=== PATIENT | female | born 1935 | race Caucasian/White ===

== ENCOUNTER 2022-01-30 19:35 | Inpatient (IN) | payer MEDICARE ==
[2022-01-30 20:09] LABS: #Monocytes 0.8 10x3/uL (0.0-1.1); #Neutrophils 4.8 10x3/uL (1.5-8.4); %Basophils 0.5 % (0.0-2.0); %Eosinophils 0.4 % (0.0-6.0); %Lymphocytes 32.3 % (18.0-47.0); %Monocytes 9.7 % (0.0-10.0); %Neutrophils 56.7 % (40.0-75.0); Hemoglobin 13.8 g/dL (12.0-15.5); Mean Corpuscular HGB CONC 33.9 g/dL (32.0-36.0); Mean Corpuscular Hemoglobin 29.4 pg (27.0-33.0); Mean Corpuscular Volume 86.6 fl (81.6-98.3); Mean Platelet Volume 10.6 fl (7.4-10.4); Platelet Count 275 10x3/uL (150-450); RBC Distribution Width 14.7 % (11.5-14.5); White Blood Cell (WBC) Count 8.5 10x3/uL (3.5-10.5)
[2022-01-30 20:23] LABS: ALT (SGPT) 11 U/L (8-55); AST (SGOT) 24 U/L (5-34); Albumin 4.2 g/dL (3.4-4.8); Alkaline Phosphatase 69 U/L (40-110); Anion Gap 17 mmol/L (10-20); BUN (Urea Nitrogen) 16 mg/dL (9.8-20.1); Bilirubin, Total 0.8 mg/dL (0.2-1.2); Calc. Creatinine Clearance 0 mL/min (70-130); Calcium 9.6 mg/dL (7.8-10.44); Carbon Dioxide 21 mmol/L (23-31); Chloride 107 mmol/L (98-107); Globulin 3.5 g/dL (2.4-3.5); Glucose 91 mg/dL (83-110); Lipase 40 U/L (8-78); Potassium 3.5 mmol/L (3.5-5.1); Protein, Total 7.7 g/dL (5.8-8.1); Sodium 141 mmol/L (136-145)
[2022-01-30] MEDS ORDERED: Aspirin Chewable 81 MG TAB ONE (20:28)
[2022-01-30] MEDS ORDERED: Ondansetron PF 4 MG/2 ML Vial ONE (20:28)
[2022-01-30 20:50] LABS: Bilirubin Neg (Negative); Blood, Urine 150 (Negative); Clarity Clear (Clear); Glucose, Urine (Dipstick) Normal (Negative); Ketone, Urine 50 mg/dL (Negative); Leukocyte 500 (Negative); Nitrite Positive (Negative); Protein, Urine (Dipstick) 15 mg/dl (Neg-Trace); Specific Gravity, Urine 1.015 (1.002-1.036); Urobilinogen Normal mg/dL (Less than 2)
[2022-01-30 20:56] LABS: Bacteria/HPF 3+ HPF (None Seen); Squamous Epithelial 0-3 HPF (0-3)
[2022-01-30] MEDS ORDERED: Cefepime 2 GM VIAL ONE (21:43)
[2022-01-30 23:18] LABS: Troponin I Less than 0.010 ng/mL (< 0.028)
[2022-01-30] MEDS ORDERED: Senokot S 8.6-50 MG TAB PO PRN (23:41)
[2022-01-31 02:05] LABS: SARS-CoV-2 NAA Rapid Test Not Detected (NotDetected)
[2022-01-31 02:12] LABS: Troponin I Less than 0.010 ng/mL (< 0.028)
[2022-01-31] MEDS ORDERED: Ondansetron PF 4 MG/2 ML Vial ONE ×2 (03:52→10:29)
[2022-01-31 08:41] LABS: Anion Gap 17 mmol/L (10-20); BUN (Urea Nitrogen) 12 mg/dL (9.8-20.1); Calc. Creatinine Clearance 0 mL/min (70-130); Calcium 8.5 mg/dL (7.8-10.44); Carbon Dioxide 17 mmol/L (23-31); Chloride 112 mmol/L (98-107); Glucose 86 mg/dL (83-110); Potassium 4.5 mmol/L (3.5-5.1); Sodium 141 mmol/L (136-145)
[2022-01-31] MEDS ORDERED: Enoxaparin Sodium 40 MG/0.4 ML SYRINGE ONE (09:16)
[2022-01-31] MEDS ORDERED: cefTRIAXone\\ROCEPHIN 1 GM VIAL ONE (09:16)
[2022-01-31] MEDS: Enoxaparin Sodium 40 MG/0.4 ML SYRINGE SC SCH (09:26)
[2022-01-31] MEDS: cefTRIAXone\\ROCEPHIN 1 GM in Sodium Chloride 0.9% 100 ML IVPB SCH (09:26)
[2022-01-31] MEDS: 1/2 NS w/KCL 20 mEq 1,000 ML IV SCH ×3 (10:30→21:44)
[2022-01-31] MEDS: Ondansetron PF 4 MG/2 ML Vial IVP PRN ×2 (10:30→18:33)
[2022-01-31] MEDS ORDERED: Acetaminophen 325 MG TAB PO PRN (14:36)
[2022-01-31 16:35] VITALS: BMI 25.0
[2022-01-31] MEDS ORDERED: Melatonin 3 MG TAB PO SCH (23:15)
[2022-02-01 04:50] LABS: Anion Gap 15 mmol/L (10-20); BUN (Urea Nitrogen) 7 mg/dL (9.8-20.1); Calc. Creatinine Clearance 68 mL/min (70-130); Calcium 8.8 mg/dL (7.8-10.44); Carbon Dioxide 20 mmol/L (23-31); Chloride 111 mmol/L (98-107); Glucose 100 mg/dL (83-110); Potassium 3.9 mmol/L (3.5-5.1); Sodium 142 mmol/L (136-145)
[2022-02-01 04:51] LABS: #Basophils 0.1 10x3/uL (0.0-0.2); #Eosinphils 0.1 10x3/uL (0.0-0.5); #Monocytes 0.9 10x3/uL (0.0-1.1); #Neutrophils 5.1 10x3/uL (1.5-8.4); %Basophils 0.6 % (0.0-2.0); %Eosinophils 0.7 % (0.0-6.0); %Lymphocytes 29.5 % (18.0-47.0); %Monocytes 10.1 % (0.0-10.0); %Neutrophils 58.9 % (40.0-75.0); Hemoglobin 12.6 g/dL (12.0-15.5); Mean Corpuscular HGB CONC 33.1 g/dL (32.0-36.0); Mean Corpuscular Hemoglobin 29.2 pg (27.0-33.0); Mean Corpuscular Volume 88.2 fl (81.6-98.3); Mean Platelet Volume 10.4 fl (7.4-10.4); Platelet Count 220 10x3/uL (150-450); RBC Distribution Width 14.6 % (11.5-14.5); Red Blood Cell (RBC) Count 4.32 10x6/uL (3.90-5.03); White Blood Cell (WBC) Count 8.7 10x3/uL (3.5-10.5)
[2022-02-01] MEDS: Enoxaparin Sodium 40 MG/0.4 ML SYRINGE SC SCH (09:11)
[2022-02-01] MEDS: cefTRIAXone\\ROCEPHIN 1 GM in Sodium Chloride 0.9% 100 ML IVPB SCH (09:11)
[2022-02-01 13:04] VITALS: BP 144/75; TEMP 98.3
[2022-02-01] MEDS: 1/2 NS w/KCL 20 mEq 1,000 ML IV SCH (13:33)
[2022-02-01] MEDS ORDERED: Melatonin 3 MG TAB PO SCH (21:00)
== END 2022-02-01 14:04 | disposition home or self-care (01) | DRG 689 ==
LOC: CSHERS 19:35 → CSHERHOLD 01-31 00:54 → CSHTELE 01-31 13:00
PROVIDERS: ADMIT Family Medicine; ATTEND Internal Medicine
DX: N39.0 Urinary tract infection, site not specified (principal); G93.41 Metabolic encephalopathy; G89.29 Other chronic pain; I10 Essential (primary) hypertension; M19.90 Unspecified osteoarthritis, unspecified site; Z96.649 Presence of unspecified artificial hip joint; M81.0 Age-related osteoporosis without current pathological fracture; Z96.642 Presence of left artificial hip joint; F41.9 Anxiety disorder, unspecified; F32.A Depression, unspecified; B96.20 Unspecified Escherichia coli [E. coli] as the cause of diseases classified elsewhere; Z20.822 Contact with and (suspected) exposure to COVID-19; Z88.5 Allergy status to narcotic agent; Z88.0 Allergy status to penicillin; Z88.8 Allergy status to other drugs, medicaments and biological substances; Z79.899 Other long term (current) drug therapy; Z86.711 Personal history of pulmonary embolism; Z79.51 Long term (current) use of inhaled steroids; Z90.710 Acquired absence of both cervix and uterus; Z98.890 Other specified postprocedural states; Z87.891 Personal history of nicotine dependence
CPT/HCPCS: 36415; 70450; 71045; 80048; 80053; 81003; 81015; 83605; 83690; 84484; 85025; 87040; 87077; 87086; 87186; 93005; 93010; J0692; J0696; J1650; J2405; J3480; J3490; U0002

== ENCOUNTER 2022-04-10 11:39 | Emergency (ER) | payer MEDICARE ==
[2022-04-10] MEDS ORDERED: Ondansetron PF 4 MG/2 ML Vial ONE (12:08)
[2022-04-10] MEDS ORDERED: Morphine 4 MG/ML VIAL ONE ×2 (12:09→13:56)
[2022-04-10 12:10] LABS: #Monocytes 0.8 10x3/uL (0.0-1.1); #Neutrophils 10.1 10x3/uL (1.5-8.4); %Basophils 0.3 % (0.0-2.0); %Eosinophils 0.3 % (0.0-6.0); %Lymphocytes 13.9 % (18.0-47.0); %Monocytes 6.2 % (0.0-10.0); %Neutrophils 78.3 % (40.0-75.0); Hemoglobin 13.6 g/dL (12.0-15.5); Mean Corpuscular HGB CONC 32.7 g/dL (32.0-36.0); Mean Corpuscular Hemoglobin 29.5 pg (27.0-33.0); Mean Corpuscular Volume 90.2 fl (81.6-98.3); Mean Platelet Volume 10.3 fl (7.4-10.4); Platelet Count 244 10x3/uL (150-450); RBC Distribution Width 14.8 % (11.5-14.5); Red Blood Cell (RBC) Count 4.61 10x6/uL (3.90-5.03); White Blood Cell (WBC) Count 12.9 10x3/uL (3.5-10.5)
[2022-04-10 12:24] LABS: ALT (SGPT) 19 U/L (8-55); AST (SGOT) 30 U/L (5-34); Albumin 4.1 g/dL (3.4-4.8); Alkaline Phosphatase 71 U/L (40-110); Anion Gap 12 mmol/L (10-20); BUN (Urea Nitrogen) 22 mg/dL (9.8-20.1); Bilirubin, Total 0.6 mg/dL (0.2-1.2); Calc. Creatinine Clearance 0 mL/min (70-130); Calcium 9.4 mg/dL (7.8-10.44); Carbon Dioxide 25 mmol/L (23-31); Chloride 108 mmol/L (98-107); Estimated GFR 81; Globulin 3.2 g/dL (2.4-3.5); Glucose 93 mg/dL (83-110); Potassium 4.2 mmol/L (3.5-5.1); Protein, Total 7.3 g/dL (5.8-8.1); Sodium 141 mmol/L (136-145)
[2022-04-10] MEDS ORDERED: Iopamidol 300 61% 100 ML VIAL FS ONE (13:16)
[2022-04-10 14:25] LABS: PTT 26.5 sec (22.0-33.0); Prothrombin Time 11.1 sec (9.5-12.1)
[2022-04-10] MEDS ORDERED: Ketorolac Tromethamine 30 MG/ML VIAL ONE (15:19)
== END 2022-04-10 15:30 | disposition short-term general hospital (02) ==
LOC: CSHERS 11:39
DX: S72.011A Unspecified intracapsular fracture of right femur, initial encounter for closed fracture (principal); I10 Essential (primary) hypertension; W19.XXXA Unspecified fall, initial encounter
CPT/HCPCS: 70450; 71260; 72170; 74177; 80053; 83880; 85025; 85610; 85730; 93005; 96374; 96375; 96376; J1885; J2270; J2405; Q9967

== ENCOUNTER 2022-07-05 17:44 | Inpatient (IN) | payer MEDICARE ==
[~2022-07-05 17:44] MED LIST: Iopamidol 370 76% 100 ML VIAL ONE
[2022-07-05 19:04] LABS: #Monocytes 0.7 10x3/uL (0.0-1.1); #Neutrophils 5.6 10x3/uL (1.5-8.4); %Basophils 0.5 % (0.0-2.0); %Eosinophils 0.4 % (0.0-6.0); %Lymphocytes 25.5 % (18.0-47.0); %Monocytes 8.4 % (0.0-10.0); %Neutrophils 65.1 % (40.0-75.0); Hemoglobin 13.2 g/dL (12.0-15.5); Mean Corpuscular HGB CONC 33.2 g/dL (32.0-36.0); Mean Corpuscular Hemoglobin 28.8 pg (27.0-33.0); Mean Corpuscular Volume 86.9 fl (81.6-98.3); Mean Platelet Volume 9.9 fl (7.4-10.4); Platelet Count 303 10x3/uL (150-450); RBC Distribution Width 14.4 % (11.5-14.5); Red Blood Cell (RBC) Count 4.58 10x6/uL (3.90-5.03); White Blood Cell (WBC) Count 8.6 10x3/uL (3.5-10.5)
[2022-07-05 19:18] LABS: ALT (SGPT) 6 U/L (8-55); AST (SGOT) 25 U/L (5-34); Albumin 4.1 g/dL (3.4-4.8); Alkaline Phosphatase 91 U/L (40-110); Anion Gap 15 mmol/L (10-20); BUN (Urea Nitrogen) 9 mg/dL (9.8-20.1); Bilirubin, Total 0.8 mg/dL (0.2-1.2); Calc. Creatinine Clearance 0 mL/min (70-130); Calcium 9.6 mg/dL (7.8-10.44); Carbon Dioxide 23 mmol/L (23-31); Chloride 108 mmol/L (98-107); Estimated GFR 86; Globulin 3.3 g/dL (2.4-3.5); Glucose 91 mg/dL (83-110); Lipase 31 U/L (8-78); Magnesium 1.7 mg/dL (1.6-2.6); Potassium 3.5 mmol/L (3.5-5.1); Protein, Total 7.4 g/dL (5.8-8.1); Sodium 142 mmol/L (136-145)
[2022-07-05 19:40] LABS: Bilirubin Neg (Negative); Blood, Urine 25 (Negative); Clarity Clear (Clear); Glucose, Urine (Dipstick) Normal (Negative); Ketone, Urine 5 mg/dL (Negative); Leukocyte Negative (Negative); Nitrite Negative (Negative); Protein, Urine (Dipstick) Negative (Neg-Trace); Urobilinogen Normal mg/dL (Less than 2)
[2022-07-05 19:54] LABS: Bacteria/HPF None Seen HPF (None Seen); RBC/HPF None Seen HPF (0-3); Squamous Epithelial None Seen HPF (0-3); WBC/HPF 0-3 HPF (0-3)
[2022-07-05 20:25] LABS: SARS-CoV-2 NAA Rapid Test Not Detected (NotDetected)
[2022-07-05] MEDS ORDERED: Ondansetron PF 4 MG/2 ML Vial IVP PRN (21:31)
[2022-07-05] MEDS ORDERED: Calcium Carbonate 500 MG ChewTAB PO PRN (21:31)
[2022-07-05] MEDS ORDERED: Senokot S 8.6-50 MG TAB PO PRN (21:31)
[2022-07-05] MEDS ORDERED: Guaifenesin DM 100-10/5 ML UDCUP PO PRN (21:31)
[2022-07-05] MEDS ORDERED: Magnesium Sulfate/D5W 1 GM/100 ML BAG IVPB SCH (21:45)
[2022-07-05] MEDS ORDERED: Potassium Chloride 20 MEQ TAB PO SCH (21:45)
[2022-07-05] MEDS ORDERED: Potassium Chloride 20 MEQ TAB ONE (22:56)
[2022-07-05] MEDS ORDERED: Acetaminophen 325 MG TAB ONE (23:39)
[2022-07-05] MEDS: Acetaminophen 325 MG TAB PO PRN (23:45)
[2022-07-06 04:21] LABS: Anion Gap 11 mmol/L (10-20); BUN (Urea Nitrogen) 6 mg/dL (9.8-20.1); Calc. Creatinine Clearance 0 mL/min (70-130); Carbon Dioxide 25 mmol/L (23-31); Chloride 107 mmol/L (98-107); Estimated GFR 86; Glucose 88 mg/dL (83-110); Magnesium 1.8 mg/dL (1.6-2.6); Potassium 3.4 mmol/L (3.5-5.1); Sodium 140 mmol/L (136-145)
[2022-07-06] MEDS ORDERED: Enoxaparin Sodium 40 MG/0.4 ML SYRINGE ONE (07:45)
[2022-07-06] MEDS ORDERED: Amlodipine 5 MG TAB ONE (07:45)
[2022-07-06] MEDS ORDERED: Famotidine 20 MG TAB ONE (07:46)
[2022-07-06] MEDS ORDERED: Ascorbic Acid 500 mg Chewable Tablet ONE (07:47)
[2022-07-06] MEDS: Amlodipine 5 MG TAB PO SCH (08:47)
[2022-07-06] MEDS: Ascorbic Acid 500 mg Chewable Tablet PO SCH (08:48)
[2022-07-06] MEDS: Enoxaparin Sodium 40 MG/0.4 ML SYRINGE SC SCH (08:48)
[2022-07-06] MEDS: Famotidine 20 MG TAB PO SCH ×2 (08:49→22:04)
[2022-07-06] MEDS: Multivit, Therapeutic 1 TAB PO SCH (08:49)
[2022-07-06] MEDS ORDERED: Potassium Bicarbonate/Cit Ac 20 MEQ TAB PO SCH (10:00)
[2022-07-06] MEDS ORDERED: Potassium Chloride 20 MEQ TAB ONE (10:09)
[2022-07-06] MEDS: Azithromycin 500 MG in Sodium Chloride 0.9% 250 ML 250 ML IVPB SCH (18:42)
[2022-07-06] MEDS: Aspirin 81 mg Enteric Coated Tablet PO SCH (22:03)
[2022-07-06] MEDS: Donepezil HCl 5 MG TAB PO SCH (22:04)
[2022-07-06] MEDS: Acetaminophen 325 MG TAB PO PRN (22:04)
[2022-07-07 05:35] LABS: Legionella Urinary Ag Negative (Negative); Strep pneumo Urine Ag NEGATIVE (NEGATIVE)
[2022-07-07] MEDS: Enoxaparin Sodium 40 MG/0.4 ML SYRINGE SC SCH (09:53)
[2022-07-07] MEDS: Multivit, Therapeutic 1 TAB PO SCH (09:54)
[2022-07-07] MEDS: Aspirin 81 mg Enteric Coated Tablet PO SCH ×2 (09:54→20:36)
[2022-07-07] MEDS: Ascorbic Acid 500 mg Chewable Tablet PO SCH (09:54)
[2022-07-07] MEDS: Ferrous Sulfate 325 MG TAB PO SCH (09:54)
[2022-07-07] MEDS: Amlodipine 5 MG TAB PO SCH (09:54)
[2022-07-07] MEDS: Famotidine 20 MG TAB PO SCH ×2 (09:54→20:36)
[2022-07-07] MEDS: Azithromycin 500 MG in Sodium Chloride 0.9% 250 ML 250 ML IVPB SCH (18:05)
[2022-07-07] MEDS: Donepezil HCl 5 MG TAB PO SCH (20:36)
[2022-07-08 05:27] LABS: #Basophils 0.1 10x3/uL (0.0-0.2); #Eosinphils 0.1 10x3/uL (0.0-0.5); #Neutrophils 5.2 10x3/uL (1.5-8.4); %Basophils 0.7 % (0.0-2.0); %Eosinophils 0.7 % (0.0-6.0); %Lymphocytes 30.9 % (18.0-47.0); %Monocytes 11.2 % (0.0-10.0); %Neutrophils 56.2 % (40.0-75.0); Hemoglobin 13.2 g/dL (12.0-15.5); Mean Corpuscular HGB CONC 33.2 g/dL (32.0-36.0); Mean Corpuscular Hemoglobin 28.7 pg (27.0-33.0); Mean Corpuscular Volume 86.3 fl (81.6-98.3); Mean Platelet Volume 10.1 fl (7.4-10.4); Platelet Count 281 10x3/uL (150-450); RBC Distribution Width 14.1 % (11.5-14.5); White Blood Cell (WBC) Count 9.2 10x3/uL (3.5-10.5)
[2022-07-08 05:52] LABS: Anion Gap 14 mmol/L (10-20); BUN (Urea Nitrogen) 10 mg/dL (9.8-20.1); Calc. Creatinine Clearance 0 mL/min (70-130); Calcium 9.1 mg/dL (7.8-10.44); Carbon Dioxide 22 mmol/L (23-31); Chloride 107 mmol/L (98-107); Estimated GFR 84; Glucose 96 mg/dL (83-110); Potassium 3.5 mmol/L (3.5-5.1); Sodium 139 mmol/L (136-145)
[2022-07-08] MEDS: Ferrous Sulfate 325 MG TAB PO SCH (09:41)
[2022-07-08] MEDS: Enoxaparin Sodium 40 MG/0.4 ML SYRINGE SC SCH (09:41)
[2022-07-08] MEDS: Ascorbic Acid 500 mg Chewable Tablet PO SCH (09:41)
[2022-07-08] MEDS: Multivit, Therapeutic 1 TAB PO SCH (09:41)
[2022-07-08] MEDS: Famotidine 20 MG TAB PO SCH ×2 (09:42→21:51)
[2022-07-08] MEDS: Aspirin 81 mg Enteric Coated Tablet PO SCH ×2 (09:42→21:47)
[2022-07-08] MEDS: Amlodipine 5 MG TAB PO SCH (09:42)
[2022-07-08] MEDS: Donepezil HCl 5 MG TAB PO SCH (21:47)
[2022-07-09] MEDS: Acetaminophen 325 MG TAB PO PRN (00:01)
[2022-07-09 05:56] VITALS: TEMP 98.2
[2022-07-09 08:39] VITALS: BP 129/57
== END 2022-07-09 10:45 | DRG 884 ==
LOC: CSHERS 17:44 → CSHERHOLD 21:49 → INTOOBSV 21:49 → CSHTELE 07-06 17:53 → OBSVTOIN 07-07 16:21
PROVIDERS: ADMIT Student in an Organized Health Care Education/Training Program; ATTEND Internal Medicine
DX: F03.90 Unspecified dementia, unspecified severity, without behavioral disturbance, psychotic disturbance, mood disturbance, and anxiety (principal); J90 Pleural effusion, not elsewhere classified; J98.11 Atelectasis; I45.10 Unspecified right bundle-branch block; Z20.822 Contact with and (suspected) exposure to COVID-19; F41.9 Anxiety disorder, unspecified; F32.A Depression, unspecified; M19.90 Unspecified osteoarthritis, unspecified site; I10 Essential (primary) hypertension; M81.0 Age-related osteoporosis without current pathological fracture; Z96.643 Presence of artificial hip joint, bilateral; G89.4 Chronic pain syndrome; Z86.711 Personal history of pulmonary embolism; Z79.01 Long term (current) use of anticoagulants; Z98.890 Other specified postprocedural states; Z87.891 Personal history of nicotine dependence; Z88.5 Allergy status to narcotic agent; Z88.0 Allergy status to penicillin; Z88.8 Allergy status to other drugs, medicaments and biological substances; Z79.82 Long term (current) use of aspirin; Z79.899 Other long term (current) drug therapy; Z90.710 Acquired absence of both cervix and uterus
CPT/HCPCS: 36415; 36416; 51701; 70450; 71045; 71275; 80048; 80053; 81003; 81015; 83605; 83690; 83735; 84443; 85025; 87040; 87086; 87449; 87899; 93005; 96361; 96365; 96366; 96372; 96375; 96376; G0378; J0456; J1650; J1956; J2405; J3475; J7050; Q9967

== ENCOUNTER 2023-04-01 17:25 | Emergency (ER) | payer MEDICARE ==
[2023-04-01] MEDS ORDERED: Acetaminophen 500 MG TAB ONE (18:25)
[2023-04-01 19:11] LABS: SARS-CoV-2 NAA Rapid Test DETECTED (NotDetected)
[2023-04-01 19:21] LABS: ALT (SGPT) 10 U/L (8-55); AST (SGOT) 29 U/L (5-34); Albumin 4.4 g/dL (3.4-4.8); Alkaline Phosphatase 94 U/L (40-110); Anion Gap 17 mmol/L (10-20); BUN (Urea Nitrogen) 14 mg/dL (9.8-20.1); Bilirubin, Total 0.4 mg/dL (0.2-1.2); Calc. Creatinine Clearance 0 mL/min (70-130); Calcium 9.3 mg/dL (7.8-10.44); Carbon Dioxide 20 mmol/L (23-31); Chloride 105 mmol/L (98-107); Estimated GFR 73; Globulin 3.8 g/dL (2.4-3.5); Glucose 84 mg/dL (83-110); Potassium 4.1 mmol/L (3.5-5.1); Protein, Total 8.2 g/dL (5.8-8.1); Sodium 138 mmol/L (136-145)
[2023-04-01 19:26] LABS: Troponin I Less than 0.010 ng/mL (< 0.028)
[2023-04-01 19:34] LABS: #Monocytes 0.9 10x3/uL (0.0-1.1); #Neutrophils 4.8 10x3/uL (1.5-8.4); %Basophils 0.6 % (0.0-2.0); %Lymphocytes 16.1 % (18.0-47.0); %Monocytes 12.6 % (0.0-10.0); %Neutrophils 70.4 % (40.0-75.0); Hematocrit 40.2 % (34.9-44.5); Hemoglobin 13.3 g/dL (12.0-15.5); Mean Corpuscular HGB CONC 33.1 g/dL (32.0-36.0); Mean Corpuscular Hemoglobin 28.9 pg (27.0-33.0); Mean Corpuscular Volume 87.4 fl (81.6-98.3); Mean Platelet Volume 10.3 fl (7.4-10.4); Platelet Count 217 10x3/uL (150-450); RBC Distribution Width 15.3 % (11.5-14.5); White Blood Cell (WBC) Count 6.8 10x3/uL (3.5-10.5)
== END 2023-04-01 20:34 | disposition home or self-care (01) ==
LOC: CSHERS 17:25
DX: U07.1 COVID-19 (principal); I10 Essential (primary) hypertension; M81.0 Age-related osteoporosis without current pathological fracture; M41.9 Scoliosis, unspecified
CPT/HCPCS: 0240U; 71045; 80053; 83605; 83880; 84484; 85025; 87040; 93005; 99285; 36415

== ENCOUNTER 2023-07-23 10:22 | Emergency (ER) | payer OTHER, MEDICARE ==
[2023-07-23] MEDS ORDERED: Iopamidol 370 76% 100 ML VIAL ONE (10:35)
[2023-07-23 11:35] LABS: ALT (SGPT) Less than 7 U/L (8-55); AST (SGOT) 21 U/L (5-34); Albumin 4.1 g/dL (3.4-4.8); Alkaline Phosphatase 87 U/L (40-110); Anion Gap 18 mmol/L (10-20); BUN (Urea Nitrogen) 13 mg/dL (9.8-20.1); Bilirubin, Total 0.6 mg/dL (0.2-1.2); Calc. Creatinine Clearance 0 mL/min (70-130); Calcium 9.4 mg/dL (7.8-10.44); Carbon Dioxide 22 mmol/L (23-31); Chloride 108 mmol/L (98-107); Estimated GFR 77; Globulin 3.3 g/dL (2.4-3.5); Glucose 85 mg/dL (83-110); Potassium 4.1 mmol/L (3.5-5.1); Protein, Total 7.4 g/dL (5.8-8.1); Sodium 144 mmol/L (136-145)
[2023-07-23 11:46] LABS: Bilirubin Neg (Negative); Blood, Urine 25 (Negative); Glucose, Urine (Dipstick) Normal (Negative); Ketone, Urine 5 mg/dL (Negative); Leukocyte 100 (Negative); Nitrite Positive (Negative); Protein, Urine (Dipstick) 15 mg/dl (Neg-Trace); Urobilinogen Normal mg/dL (Less than 2)
[2023-07-23 11:46] LABS: #Basophils 0.1 10x3/uL (0.0-0.2); #Eosinphils 0.1 10x3/uL (0.0-0.5); #Monocytes 0.8 10x3/uL (0.0-1.1); %Basophils 0.6 % (0.0-2.0); %Eosinophils 1.7 % (0.0-6.0); %Lymphocytes 24.3 % (18.0-47.0); %Monocytes 9.7 % (0.0-10.0); %Neutrophils 63.4 % (40.0-75.0); Hematocrit 45.2 % (34.9-44.5); Hemoglobin 14.7 g/dL (12.0-15.5); Mean Corpuscular HGB CONC 32.5 g/dL (32.0-36.0); Mean Corpuscular Hemoglobin 29.5 pg (27.0-33.0); Mean Corpuscular Volume 90.6 fl (81.6-98.3); Mean Platelet Volume 10.2 fl (7.4-10.4); Platelet Count 230 10x3/uL (150-450); RBC Distribution Width 15.6 % (11.5-14.5); Red Blood Cell (RBC) Count 4.99 10x6/uL (3.90-5.03); White Blood Cell (WBC) Count 7.9 10x3/uL (3.5-10.5)
[2023-07-23 11:51] LABS: Clarity Hazy (Clear)
[2023-07-23 11:52] LABS: CAUTI Indications for Culture Pelvic or flank pain; Squamous Epithelial 0-3 HPF (0-3)
[2023-07-23 11:53] LABS: Bacteria/HPF 4+ HPF (None Seen); Mucous/LPF 2+ LPF (<2+)
[2023-07-23 11:54] LABS: Urine Culture Reflex Yes Yes
[2023-07-23] MEDS ORDERED: cefTRIAXone (ROCEPHIN) 1 GM VIAL ONE (13:15)
[2023-07-23] MEDS ORDERED: traMADol HCl 50 MG TAB ONE (14:05)
== END 2023-07-23 15:12 | disposition home or self-care (01) ==
LOC: CSHERS 10:22
DX: S22.42XA Multiple fractures of ribs, left side, initial encounter for closed fracture (principal); N39.0 Urinary tract infection, site not specified; I10 Essential (primary) hypertension; W01.0XXA Fall on same level from slipping, tripping and stumbling without subsequent striking against object, initial encounter
CPT/HCPCS: 36415; 71045; 71275; 80053; 81001; 83605; 83735; 83880; 85025; 87040; 87077; 87086; 87186; 93005; 96374; J0696; Q9967